=== PATIENT | female | born 1985 | race Two or more races ===

== ENCOUNTER 2021-09-25 17:36 | Inpatient (IN) | payer OTHER, SELFPAY ==
[~2021-09-25] VITALS: Ht 154.9 cm; Wt 68.0 kg
--- NOTE | 2021-09-25 19:35 | NUR ---
PATIENT IS A DIRECT ADMISSION FROM [facility]. RECEIVED REPORT FROM MIRANDA BONILLA FROM [facility]. CC: SOB, FEVER, COUGH DX: COVID PNEUMONIA. HX: GUILLAIN BARRE SYNDROME. A&O X4, AMBULATORY, ON 3L NS, SATTING 93%. SKIN IS INTACT, WARM, DRY. PATIENT HAS A LAC IV SITE. MRSA SWAB TAKEN AND INITIAL VITAL SIGNS. SAFETY MEASURES IN PLACE, CALL LIGHT WITHIN REACH. PT STABLE. WILL CONTINUE TO MONITOR.
--- NOTE | 2021-09-25 21:07 | NUR ---
PATIENT IS WATCHING TV. PROVIDED HYGIENIC PRODUCTS AND WATER AT BEDSIDE
[2021-09-25] MEDS ORDERED: SODIUM PHOS / POTASSIUM PHOS 1 PKT PDR PO PRN (22:55)
[2021-09-25] MEDS ORDERED: ACETAMINOPHEN 325 MG TAB PO PRN (22:55)
[2021-09-25] MEDS ORDERED: HYDROcodone/APAP 5/325 MG 1 TAB TAB PO PRN (22:55)
[2021-09-25] MEDS ORDERED: ONDANSETRON 4 MG/2 ML VIAL IM/IVP PRN (22:55)
[2021-09-25] MEDS ORDERED: DOCUSATE SODIUM 100 MG GELCAP PO PRN (22:55)
[2021-09-25] MEDS ORDERED: MAGNESIUM OXIDE 400 MG TAB PO PRN (22:55)
[2021-09-25] MEDS ORDERED: POTASSIUM CHLORIDE 10 MEQ TABER PO PRN (22:55)
[2021-09-25] MEDS ORDERED: ZOLPIDEM 5 MG TAB PO PRN (22:55)
[2021-09-25] MEDS ORDERED: MORPHINE SULFATE 2 MG/ML SYR IVP PRN (22:55)
[2021-09-25] MEDS ORDERED: ALBUTEROL SULFATE/IPRATROPIU 3 ML SOL IH PRN (23:00)
[2021-09-25 23:19] LABS: BASOPHILS % (AUTO) 0.5 % (0.0-2.0); EOSINOPHILS # (AUTO) 0.1 K/uL (0-0.4); EOSINOPHILS % (AUTO) 1.1 % (0.0-4.0); HEMATOCRIT 40.1 % (36-48); HEMOGLOBIN 13.8 g/dL (12.0-16.0); LYMPHOCYTES # (AUTO) 0.6 K/uL (2.5-16.5); LYMPHOCYTES % (AUTO) 9.5 % (20.5-51.1); MEAN CORPUSCULAR HEMOGLOBIN 31 pg (27-31); MEAN CORPUSCULAR HGB CONC 34 g/dL (33-37); MEAN CORPUSCULAR VOLUME 89.9 fL (80-94); MONOCYTES # (AUTO) 0.5 K/uL (0.8-1.0); MONOCYTES % (AUTO) 7.4 % (1.7-9.3); NEUTROPHILS # (AUTO) 5.2 K/uL (1.8-7.7); NEUTROPHILS % (AUTO) 81.5 % (42.2-75.2); PLATELET COUNT (AUTO) 279 K/uL (140-450); RED BLOOD CELL COUNT(AUTO) 4.46 MIL/uL (4.20-5.40); RED CELL DISTRIBUTION WIDTH 12.8 % (11.6-13.7); WHITE BLOOD COUNT (AUTO) 6.4 K/uL (4.8-10.8)
[2021-09-25 23:32] LABS: ALBUMIN 2.7 g/dL (3.4-5.0); ANION GAP 10.1 (8-16); CARBON DIOXIDE 30.1 mmol/L (21-32); CREATININE 0.8 mg/dL (0.6-1.3); PHOSPHORUS 4.2 mg/dL (2.5-4.9); POTASSIUM 4.2 mmol/L (3.5-5.1); TOTAL BILIRUBIN 0.3 mg/dL (0.0-1.0)
[2021-09-26] VITALS: BP 106/66
[2021-09-26] MEDS ORDERED: LORazepam 2 MG/ML VIAL IVP ONE (01:15)
--- NOTE | 2021-09-26 01:20 | NUR ---
CONTACTED DR. MURCIA ABOUT PATIENTS ANXIETY. RECEIVED AN ORDER OF ATIVAN 1MG IVP ONCE. ORDERS CARRIED OUT.
--- NOTE | 2021-09-26 01:22 | NUR ---
PATIENT STATING HAVING SOB WHEN AMBULATING TO THE BATHROOM. WILL PROVIDE BEDSIDE COMMODE. O2 SAT: 93% PT DESATS WHEN TAKEN OFF NASAL CANNULA 85%.
--- NOTE | 2021-09-26 02:53 | NUR ---
PATIENT IS ASLEEP, OBSERVATION OF CHEST RISE AND FALL. PT STABLE. WILL CONTINUE TO MONITOR.
[2021-09-26 04:00] VITALS: BP 102/71
--- NOTE | 2021-09-26 04:10 | NUR ---
TOOK PTS VITALS. PT IS STABLE. SATTING ABOVE 90% WITH NC 3L . WILL CONTINUE TO MONITOR.
[2021-09-26] MEDS ORDERED: remdesivir COMMUNICATION ORDER 1 EA MISC MC PRN ×2 (06:00→09:00)
[2021-09-26 06:21] LABS: BASOPHILS % (AUTO) 0.1 % (0.0-2.0); HEMATOCRIT 37.9 % (36-48); LYMPHOCYTES # (AUTO) 1.1 K/uL (2.5-16.5); LYMPHOCYTES % (AUTO) 15.2 % (20.5-51.1); MEAN CORPUSCULAR HEMOGLOBIN 31 pg (27-31); MEAN CORPUSCULAR HGB CONC 34 g/dL (33-37); MEAN CORPUSCULAR VOLUME 90.1 fL (80-94); MONOCYTES # (AUTO) 0.6 K/uL (0.8-1.0); MONOCYTES % (AUTO) 8.8 % (1.7-9.3); NEUTROPHILS # (AUTO) 5.3 K/uL (1.8-7.7); NEUTROPHILS % (AUTO) 75.9 % (42.2-75.2); PLATELET COUNT (AUTO) 290 K/uL (140-450); RED CELL DISTRIBUTION WIDTH 12.7 % (11.6-13.7)
[2021-09-26 06:22] LABS: ALBUMIN 2.6 g/dL (3.4-5.0); ANION GAP 12.2 (8-16); CARBON DIOXIDE 27.9 mmol/L (21-32); CREATININE 0.8 mg/dL (0.6-1.3); POTASSIUM 4.1 mmol/L (3.5-5.1); TOTAL BILIRUBIN 0.3 mg/dL (0.0-1.0)
--- NOTE | 2021-09-26 07:15 | NUR ---
PASSED ON BEDSIDE REPORT TO AM SHIFT RN. PT STABLE.
--- NOTE | 2021-09-26 07:24 | NUR ---
RECEIVED REPORT FROM ADOBE BALL MIXER NURSE FOR CONTINUITY OF CARE, POC DISCUSSED. PT IS RESTING IN BED ON 3L NC WITH CHEST RISING AND FALLING EVEN AND UNLABORED. PT IS ON TELE MONITOR. SKIN INTACT WITH A LEFT AC SALINE LOCK. ALL SAFETY MEASURES IN PLACE, CALL LIGHT WITHIN REACH. WILL CONTINUE TO MONITOR.
[2021-09-26 08:00] VITALS: BP 116/81
[2021-09-26] MEDS ORDERED: remdesivir CLINICAL MONITORING 1 EA MISC MC PRN (08:10)
[2021-09-26] MEDS: DEXAMETHASONE 4 MG/ML VIAL IVP SCH (09:07)
[2021-09-26] MEDS: PANTOPRAZOLE 40 MG INJ VIAL IVP SCH (09:07)
[2021-09-26] MEDS: ENOXAPARIN 40 MG/0.4 ML SYR SUBQ SCH (09:08)
--- NOTE | 2021-09-26 09:27 | NUR ---
BRAD MEDICATION ADMINISTERED PER MD ORDER, PT EDUCATION PROVIDED. PT TOLERATED ADMINISTRATION AND IV IS PATENT AND INTACT. PT LUNG SOUNDS ARE DIMINISHED AND PT IS ON 3L NC SATING AT 90%. CHEST RISING AND FALLING EVEN AND UNLABORED. PT IS REPORTS ALL NEEDS ARE MET AT THIS TIME AND DECLINES SOB. ALL SAFETY MEASURES IN PLACE, CALL LIGHT WITHIN REACH. WILL CONTINUE TO MONITOR.
[2021-09-26] MEDS: REMDESIVIR. 100 MG in NACL 0.9% 100 ML IV SCH (11:48)
[2021-09-26] MEDS: ALPRAZolam 0.5 MG TAB PO PRN (11:49)
--- NOTE | 2021-09-26 11:49 | NUR ---
PT REPORTS "SEVERE ANXIETY" NOTIFIED MD AND OBTAINED NEW PRN ORDER. PRN MEDICATION ADMINISTERED PER MD ORDER, PT EDUCATION PROVIDED AND PT TOLERATED ADMINISTRATION. BRAD ABX ADMINISTERED PER MD ORDER, NEW TUBING STARTED AND LABELED. PT IV PATENT. ALL SAFETY MEASURES IN PLACE, CALL LIGHT WITHIN REACH. WILL CONTINUE TO MONITOR.
[2021-09-26 12:00] VITALS: BP 107/60
--- NOTE | 2021-09-26 12:28 | NUR ---
PT SON AT WINDOW, BLINDS OPEN. PT IS STABLE. ALL SAFETY MEASURES IN PLACE, CALL LIGHT WITHIN REACH. WILL CONTINUE TO MONITOR.
--- NOTE | 2021-09-26 14:08 | NUR ---
PT HAS BEEN REMOVED FROM TELE. PT IS STABLE AND REPORTS ALL NEEDS ARE MET.
--- NOTE | 2021-09-26 15:59 | NUR ---
PATIENT HAS BEEN SCREENED AND CATEGORIZED MODERATE NUTRITION RISK. PATIENT WILL BE SEEN WITHIN 3-5 DAYS OF ADMISSION. 09/28/21 09/30/[address]
[2021-09-26 16:00] VITALS: BP 107/68
--- NOTE | 2021-09-26 16:21 | NUR ---
PT IS STABLE AND REPORTS ALL NEEDS ARE MET AT THIS TIME. ALL SAFETY MEASURES IN PLACE, CALL LIGHT WITHIN REACH. WILL CONTINUE TO MONITOR.
--- NOTE | 2021-09-26 17:58 | NUR ---
PT IS STABLE AND REPORTS ALL NEEDS ARE MET AND ALL SAFETY MEASURES IN PLACE, CALL LIGHT WITHIN REACH. WILL CONTINUE TO MONITOR.
--- NOTE | 2021-09-26 19:22 | NUR ---
PT HAS BEEN ENDORSED TO MONOTYPIST NURSE IN STABLE CONDITION. POC DISCUSSED.
--- NOTE | 2021-09-26 19:23 | NUR ---
RECEIVED REPORT FROM AM SHIFT NURSE, FOR CONTINUITY OF CARE. PT IS AWAKE A&OX4, AMBULATORY. NO S/S OF DISTRESS. ON 3L OF OXYGEN VIA NC WITH BREATHING NON LABORED. DENIES ANY PAIN. SKIN IS WARM, DRY AND NON DIAPHORETIC. IV INTACT ON L AC G20 TKO. CALL LIGHT WITHIN REACH. ALL SAFETY MEASURES IN PLACE. PLAN OF CARE DISCUSSED. WILL CONTINUE TO MONITOR.
[2021-09-26 20:00] VITALS: BP 98/61
--- NOTE | 2021-09-26 21:35 | NUR ---
CHECKED ON PT, NO COMPLAINS MADE. REQUESTED ICE WATER. NEEDS ATTENDED. ALL SAFETY MEASURES IN PLACE.
--- NOTE | 2021-09-26 23:30 | NUR ---
MADE ROUNDS ON PT, NO S/S OF DISTRESS. RESPIRATIONS EVEN AND UNLABORED. CALL LIGHT WITHIN REACH.
--- NOTE | 2021-09-27 01:40 | NUR ---
CHECKED ON PT, PT IS SLEEPING. BREATHING IS EVEN AND UNLABORED. O2 SAT @ 90%. CALL LIGHT WITHIN REACH. ALL SAFETY PRECAUTIONS IN PLACE,.
--- NOTE | 2021-09-27 03:45 | NUR ---
MADE ROUNDS ON PT, NO S/S OF DISTRESS. NO COMPLAINS MADE. V/S TAKEN FOLLOW: BP 98/58, NE 62, RR 20, T97.6, O2 SAT @96%. ALL SAFETY MEASURES IN PLACE. WILL CONTINUE TO MONITOR.
[2021-09-27 04:00] VITALS: BP 98/58
[2021-09-27 05:44] LABS: BASOPHILS % (AUTO) 0.1 % (0.0-2.0); HEMATOCRIT 39.5 % (36-48); HEMOGLOBIN 13.4 g/dL (12.0-16.0); LYMPHOCYTES # (AUTO) 1.5 K/uL (2.5-16.5); LYMPHOCYTES % (AUTO) 18.8 % (20.5-51.1); MEAN CORPUSCULAR HEMOGLOBIN 31 pg (27-31); MEAN CORPUSCULAR HGB CONC 34 g/dL (33-37); MEAN CORPUSCULAR VOLUME 90.2 fL (80-94); MONOCYTES % (AUTO) 13.1 % (1.7-9.3); NEUTROPHILS # (AUTO) 5.4 K/uL (1.8-7.7); PLATELET COUNT (AUTO) 325 K/uL (140-450); RED BLOOD CELL COUNT(AUTO) 4.38 MIL/uL (4.20-5.40); RED CELL DISTRIBUTION WIDTH 12.7 % (11.6-13.7); WHITE BLOOD COUNT (AUTO) 7.9 K/uL (4.8-10.8)
--- NOTE | 2021-09-27 05:59 | NUR ---
CHECKED ON PT, SLEEPING. RESPIRATIONS EVEN AND UNLABORED. O2 SAT @92%. CALL LIGHT WITHIN REACH. ALL SAFETY PRECAUTIONS IN PLACE.
[2021-09-27 06:05] LABS: ALBUMIN 2.6 g/dL (3.4-5.0); ANION GAP 7.6 (8-16); CARBON DIOXIDE 29.6 mmol/L (21-32); CREATININE 0.8 mg/dL (0.6-1.3); POTASSIUM 4.2 mmol/L (3.5-5.1); TOTAL BILIRUBIN 0.4 mg/dL (0.0-1.0)
--- NOTE | 2021-09-27 07:25 | NUR ---
ENDORSED TO AM SHIFT NURSE FOR CONTINUITY OF CARE. PT IS STABLE.
--- NOTE | 2021-09-27 07:30 | NUR ---
RECEIVED REPORT FROM MENTAL HEALTH SOCIAL WORKER NURSE FOR CONTINUITY OF CARE, POC DISCUSSED. PT IS RESTING IN BED ON 3L NC . BREATHING IS EVEN AND UNLABORED. ALL SAFETY MEASURES IN PLACE, CALL LIGHT WITHIN REACH.
[2021-09-27] MEDS: ENOXAPARIN 40 MG/0.4 ML SYR SUBQ SCH (09:58)
[2021-09-27] MEDS: PANTOPRAZOLE 40 MG INJ VIAL IVP SCH (09:59)
[2021-09-27] MEDS: DEXAMETHASONE 4 MG/ML VIAL IVP SCH (10:00)
--- NOTE | 2021-09-27 10:58 | NUR ---
DC PLANNING: THE PATIENT WAS A DIRECT ADMIT FROM [facility] WHO PRESENTED WITH S/S OF COVID, SHE ALSO TESTED POSITIVE FOR COVID AT [facility]. CM SPOKE WITH THE PATIENT BY PHONE, SHE LIVES IN A SINGLE STORY HOUSE WITH HER , 2 DAUGHTERS AND MOTHER. CM CONFIRMED THE ADDRESS AND CONTACT PHONE NUMBERS PER HER FACE SHEET, ALTERNATE CONTACT NUMBER FOR HER BROTHER TERESA MURRAY ALSO GIVEN, . PATIENT HAS NO H/O OF HOME HEALTH OR DME USE AND IS INDEPENDENT IN ALL ACTIVITIES. CM ENDORSED THAT HOME O2 IS BEING ORDERED THROUGH HER INSURANCE AND CONFIRMED THAT HER WILL BE AVAILABLE TO RECEIVE DELIVERY. ORDER RECEIVED FOR HOME O2, CM SPOKE WITH [facility], ORDER AND SUPPORTING CLINICAL FAXED TO THEM. THE CM ASSIGNED TO THIS PATIENT IS [facility], DIRECT NUMBER [phone]. O2 WILL BE DELIVERED BY [employer] ([phone]), CM WILL SPEAK WITH THEM ONCE AUTHORIZATION IS CONFIRMED TO REQUEST THE PORTABLE TANK TO BE DELIVERED TO THE HOSPITAL AND CONCENTRATOR TO THE PATIENTS HOME. CM WILL CONTINUE TO FOLLOW FOR NEEDS. Addendum: 09/27/21 at 1526 by Marisa Goldstein CM DC PLANNING: GANGA SPOKE WITH [employer], CONFIRMED THAT BOTH THE CONCENTRATOR AND PORTABLE SET UP WILL BE DELIVERED LATER TODAY. PORTABLE SET UP WILL BE DELIVERED TO THE HOSPITAL AND THE CONCENTRATOR WILL BE DELIVERED TO THE HOME. CM SPOKE WITH THE PATIENTS TO LET HIM KNOW ABOUT THE DELIVERY. CM WILL FOLLOW FOR NEEDS. Addendum: 09/28/21 at 1109 by Marisa Goldstein DC PLANNING: GANGA SPOKE WITH THE PATIENTS , CONFIRMED THAT THE CONCENTRATOR AND PORTABLE O2 WERE DELIVERED TO HER HOME. PLAN IS TO DC THE PATIENT LATER TODAY PER THE ATTENDING MD, THE PATIENTS WILL BRING THE PORTABLE TANK AND O2 TUBING TO THE HOSPITAL FOR THE PATIENTS RIDE HOME. GANGA WILL FOLLOW FOR NEEDS. Addendum: 09/28/21 at 1432 by Marisa Goldstein DC PLANNING: GANGA SPOKE WITH THE PATIENT BY PHONE AND CONFIRMED THAT SHE WANTED US TO MAKE A F/U APPT WITH HER PCP. F/U APPT MADE FOR THE PATIENT WITH HER PCP DR MELENDEZ FOR 10/03 AT 11:00 AM. GANGA SPOKE WITH THE PATIENTS AND GAVE HIM THE APPOINTMENT INFORMATION. GANGA WILL FOLLOW FOR NEEDS.
[2021-09-27] MEDS: REMDESIVIR. 100 MG in NACL 0.9% 100 ML IV SCH (11:49)
[2021-09-27 12:00] VITALS: BP 101/61
[2021-09-27] MEDS: ALPRAZolam 0.5 MG TAB PO PRN (12:33)
--- NOTE | 2021-09-27 12:33 | NUR ---
PT WAS FEELING ANXIOUS. CHECKED VITALS. PT IS STABLE. GAVE MEDICATION FOR ANXIETY PER MD ORDER. WILL REASSESS IN ONE HOUR.
--- NOTE | 2021-09-27 13:33 | NUR ---
PT IS DOING FINE. PT IS RESTING. BREATHING UNLABORED AND EVEN. NO DISTRESS. PT IS STABLE.
--- NOTE | 2021-09-27 19:30 | NUR ---
ENDORSED AND GAVE BEDSIDE REPORT TO NIGHT NURSE. PT IS STABLE.
--- NOTE | 2021-09-27 19:30 | NUR ---
RECEIVED ENDORSEMENT FROM MORNING SHIFT FOR CONTINUITY OF CARE. PATIENT ALERT AND AWAKE. A&O X4. VERBALLY RESPONSIVE AND ABLE TO COMMUNICATE NEEDS. DENIES PAIN AT THIS TIME. ON 3L NC WITH AN 02 SAT OF 97%. RESPIRATIONS EVEN AND UNLABORED. NO APPARENT S/SX OF ACUTE RESPIRATORY DISTRESS NOTED AT THIS TIME. IV SITE ON LAC 20G PATENT AND INTACT SL. SKIN INTACT. ABLE TO AMBULATE TO THE BR. POC AND WHITE BOARD COMMUNICATION UPDATED. ALL SAFETY MEASURES IN PLACE. CALL LIGHT WITHIN REACH. ENCOURAGED PATIENT TO USE CALL LIGHT FOR ANY NEEDS/ASSISTANCE. WILL CONTINUE TO MONITOR
[2021-09-27 20:00] VITALS: BP 99/65
--- NOTE | 2021-09-27 21:30 | NUR ---
CHECKED ON PATIENT. STABLE AND ASLEEP IN SUPINE POSITION. RESPIRATIONS EVEN AND UNLABORED. NO APPARENT S/SX OF ACUTE RESPIRATORY DISTRESS. WHITE BOARD COMMUNICATION UPDATED. ALL SAFETY MEASURES IN PLACE. CALL LIGHT WITHIN REACH. WILL CONTINUE TO MONITOR.
--- NOTE | 2021-09-28 01:30 | NUR ---
CHECKED PATIENT. STABLE AND ASLEEP IN SUPINE POSITION. RESPIRATIONS EVEN AND UNLABORED. NO APPARENT S/SX OF ACUTE RESPIRATORY DISTRESS. WHITE BOARD COMMUNICATION UPDATED. ALL SAFETY MEASURES IN PLACE. CALL LIGHT WITHIN REACH. WILL CONTINUE TO MONITOR.
[2021-09-28] MEDS: ALPRAZolam 0.5 MG TAB PO PRN ×2 (03:39→17:35)
--- NOTE | 2021-09-28 03:39 | NUR ---
RESTING IN BED, AWAKE. WITH ANXIETY, MEDICATED WITH XANAX PER MED ORDER. RESPIRATION EVEN AND UNLABORED. O2 SAT- 96%.
[2021-09-28 04:00] VITALS: BP 103/65
--- NOTE | 2021-09-28 04:39 | NUR ---
RESTING COMFORTABLY ASLEEP, NO ANXIETY NOTED. RESPIRATION EVEN AND UNLABORED. 02 SAT -97% ON 2 LITERS VIA N/C.
[2021-09-28 06:02] LABS: HEMATOCRIT 38.5 % (36-48); MEAN CORPUSCULAR HEMOGLOBIN 31 pg (27-31); MEAN CORPUSCULAR HGB CONC 34 g/dL (33-37); MEAN CORPUSCULAR VOLUME 90.9 fL (80-94); PLATELET COUNT (AUTO) 324 K/uL (140-450); RED BLOOD CELL COUNT(AUTO) 4.23 MIL/uL (4.20-5.40); RED CELL DISTRIBUTION WIDTH 12.7 % (11.6-13.7); WHITE BLOOD COUNT (AUTO) 8.2 K/uL (4.8-10.8)
[2021-09-28 06:06] LABS: ALBUMIN 2.6 g/dL (3.4-5.0); ANION GAP 10.4 (8-16); CARBON DIOXIDE 28.5 mmol/L (21-32); CREATININE 0.8 mg/dL (0.6-1.3); POTASSIUM 3.9 mmol/L (3.5-5.1); TOTAL BILIRUBIN 0.4 mg/dL (0.0-1.0)
--- NOTE | 2021-09-28 06:11 | NUR ---
ROUNDED ON PATIENT. STABLE AND ASLEEP IN SUPINE POSITION. O2 SAT OF 96% WITH 2L NC NOTED. RESPIRATIONS EVEN AND UNLABORED. NO APPARENT S/SX OF ACUTE RESPIRATORY DISTRESS. WHITE BOARD COMMUNICATION UPDATED. ALL SAFETY MEASURES IN PLACE. CALL LIGHT WITHIN REACH. WILL CONTINUE TO MONITOR.
--- NOTE | 2021-09-28 07:12 | NUR ---
PATIENT ENDORSED TO MORNING SHIFT FOR CONTINUITY OF CARE. PATIENT IS STABLE.
--- NOTE | 2021-09-28 07:15 | NUR ---
RECEIVED PT FROM NIGHT RN, PT IS ASLEEP AND ON O2 2L NC, SATURATING AT 95%, RESPIRATION IS EVEN AND VISIBLE CHEST RISE AND FALL, IV LINE NOTED ON THE LAC G. 20 WITH IVF ON TKO, NO SIGN OF DISTRESS NOTED AND WILL CONTINUE TO MONITOR PT.
[2021-09-28 08:00] VITALS: BP 99/55
[2021-09-28] MEDS: PANTOPRAZOLE 40 MG INJ VIAL IVP SCH (09:31)
[2021-09-28] MEDS: ENOXAPARIN 40 MG/0.4 ML SYR SUBQ SCH (09:31)
--- NOTE | 2021-09-28 09:31 | NUR ---
PTY WAS GIVEN THE SCHEDULED AM MEDICATIONS NOW, PT DENIES PAIN, SATURATING AT 95% ON O2 2L NC, TOLERATED THE MEDICATIONS, NO SIG OF DISTRESS NOTED AND WILL CONTINUE TO MONITOR PT.
[2021-09-28] MEDS: DEXAMETHASONE 4 MG/ML VIAL IVP SCH (09:32)
--- NOTE | 2021-09-28 09:52 | NUR ---
PT WAS ASKED NOW TO WHAT CODE SHE WANTS AND PT SAID THAT SHE WANTS TO BE RESUSCITATED WHEN SHE GOES ON CARDIAC ARREST, WILL NOTIFY MD.
[2021-09-28 10:07] LABS: MONOCYTES % (MANUAL) 8 % (5-12); MYELOCYTES % 1 % (0-0); PROMYELOCYTES % 1 % (0-0)
[2021-09-28 10:08] LABS: LYMPHOCYTES % (MANUAL) 20 % (20-46)
--- NOTE | 2021-09-28 11:40 | NUR ---
PT IS RESTING NOW, SATURATING AT 95%, NO SIGN OF DISTRESS NOTED.
--- NOTE | 2021-09-28 13:15 | NUR ---
PT IS SLEEPING NOW, SATURATING AT 96%.
[2021-09-28] MEDS ORDERED: [UNRECOGNIZED DRUG - CODE] PO (15:23)
[2021-09-28] MEDS ORDERED: ZINC50TA76 PO (15:23)
[2021-09-28] MEDS ORDERED: [UNRECOGNIZED DRUG - CODE] PO (15:23)
[2021-09-28] MEDS ORDERED: VITA400T14 PO (15:23)
--- NOTE | 2021-09-28 17:35 | NUR ---
PT WAS GIVEN AN ANTI-ANXIETY MEDICATION NOW, BP IS 122/78, PULSE IS 80, O2 SATURATION IS AT 96%, RESPIRATION IS AT 18/MIN, NO SIGN OF DISTRESS NOTED.
--- NOTE | 2021-09-28 18:00 | NUR ---
DISCHARGED PT TO HOME ACCOMPANIED BY , DISCHARGED TEACHING AND INSTRUCTIONS GIVEN TO PT AND PT VERBALIZED UNDERSTANDING, IV LINE AND ARM BAND REMOVED, PT DENIES PAIN AND NO SIGN OF DISTRESS NOTED.
== END 2021-09-28 18:00 | disposition home or self-care (01) | DRG 720 ==
LOC: MTU 21:35
PROVIDERS: ADMIT Hospitalist; ATTEND Hospitalist
PROC: XW033E5 Introduction of Remdesivir Anti-infective into Peripheral Vein, Percutaneous Approach, New Technology Group 5 (ICD-10-PCS; principal; 2021-09-26)
DX: A41.9 Sepsis, unspecified organism (principal); J96.01 Acute respiratory failure with hypoxia; J12.82 Pneumonia due to coronavirus disease 2019; E43 Unspecified severe protein-calorie malnutrition; G61.0 Guillain-Barre syndrome; U07.1 COVID-19; R74.01 Elevation of levels of liver transaminase levels; R73.9 Hyperglycemia, unspecified; Z68.28 Body mass index [BMI] 28.0-28.9, adult
CPT/HCPCS: 36415; 71045; 80053; 81025; 82948; 83615; 83735; 84100; 85025; 85379; 86140; 87081; C9113; J1100; J1650; J2060